=== PATIENT | female | born 1950 | race Caucasian/White ===

== ENCOUNTER 2018-09-05 08:03 | Emergency (ER) | payer OTHER, SELFPAY ==
[2018-09-05 08:03] VITALS: BP 174/84; PULSE 83; RESP 18; TEMP 36.6; O2SAT 100; BMI 32.8
--- NOTE | 2018-09-05 08:06 | ED.DIZZY ---
HPI - Dizziness General Chief Complaint: Dizziness Stated Complaint: DIZZY Time Seen by Provider: 09/05/18 08:04 Source: patient and family Mode of arrival: ambulatory Limitations: no limitations History of Present Illness HPI Narrative: 68-year-old female who states that last evening she woke up to urinate. She states she got out of bed and while walking to the bathroom she had a minor vertigo sensation. She states that when she got back in bed late on her right side the symptoms became much worse. Had no other symptoms at the time. Did not have any nausea or vomiting. She states that she had to sit up which did improve the symptoms somewhat. She states that she fell asleep sitting up. She woke up at approximately 0400 hr this morning again with an episode of vertigo. She states that a couple hours later she started burping and has been unable to stop burping. She states that her vertigo has greatly improved. Related Data Previous Rx's Medication Instructions Recorded meclizine 25 mg PO BID-TID PRN #10 tab 09/05/18 Allergies Allergy/AdvReac Type Severity Reaction Status Date / Time codeine Allergy Verified 09/05/18 08:18 diphenhydramine Allergy Verified 09/05/18 08:18 [From Benadryl] Penicillins Allergy Verified 09/05/18 08:18 propoxyphene [From Darvon] Allergy Verified 09/05/18 08:18 all antibiotics Allergy Uncoded 09/05/18 08:18 Review of Systems Constitutional Denies fever(s) and Denies headache(s) Eyes Denies blurry vision, Denies decreased night vision, Denies diplopia, Denies eye discharge, Reports other visual disturbances (She states that her eyes are somewhat blurry) and Denies eye pain ENT Ears, Nose, Mouth, and Throat: Denies change in voice, Denies dental pain, Reports vertigo, Denies headache(s), Denies nose pain, Denies disequilibrium, Denies tinnitus, Denies sinus pressure, Denies sore throat and Denies throat swelling Comments: Burping Cardiovascular Denies chest pain, Denies syncope, Denies edema, Denies leg edema and Denies dyspnea Respiratory Denies cough and Denies dyspnea Gastrointestinal Gastrointestinal: Denies abdominal pain, Denies change in bowel habits, Denies nausea and Denies vomiting Genitourinary Denies dysuria Musculoskeletal Denies myalgias, Denies arthralgias, Denies numbness and Denies tingling Integumentary/Breasts Denies rash Neurologic Reports vertigo, Denies syncope, Denies headache(s), Denies memory loss, Denies numbness, Denies restless legs, Denies convulsions, Denies seizure-like activity, Denies tingling, Denies paresthesias and Denies disequilibrium Psychiatric Denies memory loss Hematologic/Lymphatic Comments: Not on anticoagulation Allergic/Immunologic Denies throat swelling [facility] Medical History Hyperlipidemia (Acute) Hypertension (Acute) Social History Smoking Status: Never smoker Exam Initial Vital Signs Initial Vital Signs: Vital Signs Temperature 98 F 09/05/18 08:03 Pulse Rate 83 09/05/18 08:03 Respiratory Rate 18 09/05/18 08:03 Blood Pressure 174/84 H 09/05/18 08:03 Pulse Oximetry 100 09/05/18 08:03 Const General: cooperative, healthy appearing, comfortable, well developed, well groomed and No acute distress Orientation: alert, awake and oriented x3 HENMT Head: normal to inspection and normocephalic Ears: TM's normal bilaterally Nose: external nose normal Face and sinus: normal facial exam Mouth: oral mucosae normal Eyes Eyelids: eyelids normal Pupils: PERRL EOM: EOM intact bilaterally and No nystagmus Resp Effort & Inspection: normal respiratory effort Auscultation: clear to auscultation bilaterally Cardio Rate: regular rate Rhythm: regular rhythm Heart Sounds: no murmurs Pulses: radial pulses present GI Inspection: non-distended Palpation: soft, No firm and No tender Skin Lesions: no lesions Rashes: no rashes Neuro General: alert, awake and oriented x3 Cranial Nerves: CN's II-XI intact bilaterally and No nystagmus Cognition: normal cognition Speech: speech normal Gait: normal gait Motor: muscle tone normal throughout Sensory Exam: no sensory deficits noted Extrem General: normal to inspection, capillary refill normal and No edema Psych Appearance: grossly normal and well kempt Mood: anxious mood Course Orders Ordered: ED Orders 09/05/18 08:10 EKG-12 Lead Stat 09/05/18 08:35 Basic Metabolic Panel Stat Complete Blood Count AUTO DIFF Stat Discontinued Medications Diazepam (Valium) 5 mg PO NOW ONE Stop: 09/05/18 08:16 Last Admin: 09/05/18 08:47 Dose: 5 mg Sodium Chloride (Normal Saline 0.9%) 1,000 mls @ 1,000 mls/hr IV BOLUS ONE Stop: 09/05/18 09:31 Last Admin: 09/05/18 08:47 Dose: 1,000 mls/hr Vital Signs - 8 hr 09/05/18 08:03 09/05/18 09:59 Temperature 98 F Pulse Rate 83 88 Respiratory Rate 18 18 Blood Pressure 174/84 H Blood Pressure [Left Arm] 111/84 Pulse Oximetry 100 100 MDM - Dizziness Lab Data Attestation: I reviewed the patient's lab results. Result diagrams: 09/05/18 08:35 09/05/18 08:35 Lab Results 09/05/18 09/05/18 Range/Units 08:35 08:35 WBC 4.1 L (4.5-11.0) X10^3/uL RBC 5.07 (4.0-5.2) X10^6/uL Hgb 14.1 (12.0-16.0) g/dL Hct 41.8 (36-46) % MCV 82.3 (80-100) fL MCH 27.8 (26-34) PG MCHC 33.7 (30-36) % RDW 14.2 (11.6-14.8) % Plt Count 238 (150-400) X10^3/uL Neut % (Auto) 69.7 (50-75) % Lymph % (Auto) 18.1 L (25-40) % [place] % (Auto) 9.6 (3-14) % Eos % (Auto) 1.7 L (2-4) % Baso % (Auto) 0.9 (0-2) % Neut # (Auto) 2800 (2400-2601) /uL Sodium 140 (137-145) mmol/L Potassium 4.0 (3.4-5.1) mmol/L Chloride 103 (98-107) mmol/L Carbon Dioxide 27 (22-32) mmol/L BUN 22 H (7-17) mg/dL Creatinine 0.80 (0.52-1.04) mg/dL Estimated GFR > 60.0 (>60) mL/min BUN/Creatinine Ratio 27.5 H (6-22) Glucose 110 (80-110) mg/dL Calcium 9.3 (8.4-10.2) mg/dL ECG Data Attestation: I personally reviewed and interpreted this ECG as follows: Prior ECG tracings: not available for review Interpretation: Sinus rhythm Ventricular rate 87 Normal axis Normal intervals Normal QRS No ST T wave changes MDM Narrative Medical decision making narrative: Patient arrived with her symptoms greatly improved. She has a normal neurologic exam. Ambulated to the bathroom. Labs unremarkable. EKG unremarkable. It did seem to be positional stating that it was worse when she laid on her right side last evening. I have low suspicion for central vertigo. Will hold on further radiologic studies for now. Unsure as the exact etiology of the burping that she was experiencing. She was not complaining of any chest pain. Low suspicion for ACS. Patient's symptoms did completely resolve after receiving Valium here in the ER. Will send home with prescription for meclizine. Patient was given return precautions. She expressed understanding and agreement with plan. Patient has allergy to Benadryl is that she vomits. It is not an anaphylactic reaction. I did inform her that the meclizine may produce the same reaction. She expressed understanding. Discharge Plan Departure Patient Disposition: Home Clinical Impression: Vertigo Instructions: DI for Vertigo Activity Restrictions/Additional Instructions: The prescription that you were given today is as needed if the symptoms return. I do recommend you follow-up with your primary doctor when you return home. Make sure you are staying hydrated. Return to the emergency department for any new or worsening symptoms Prescriptions: New meclizine 25 mg tablet 25 mg PO BID-TID PRN (Reason: motion sickness) Qty: 10 RF: 0
[2018-09-05] MEDS: diazePAM 5 MG TABLET PO (08:47)
[2018-09-05] MEDS: SODIUM CHLORIDE 0.9% 1,000 ML 1000 ML IV (08:47)
[2018-09-05 08:48] LABS: Add Manual Diff / Slide Review NO; Basophils Percent Auto 0.9 % (0-2); Eosinophils Percent Auto 1.7 % (2-4); Hematocrit 41.8 % (36-46); Hemoglobin 14.1 g/dL (12.0-16.0); Lymphocytes Percent Auto 18.1 % (25-40); Mean Corpuscular HGB Conc 33.7 % (30-36); Mean Corpuscular Hemoglobin 27.8 PG (26-34); Mean Corpuscular Volume 82.3 fL (80-100); Monocytes Percent Auto 9.6 % (3-14); Neutrophils Absolute Auto 2800 /uL (1500-7000); Neutrophils Percent Auto 69.7 % (50-75); Platelet Count 238 X10^3/uL (150-400); Red Blood Cell Count 5.07 X10^6/uL (4.0-5.2); Red Cell Distribution Width 14.2 % (11.6-14.8); White Blood Cell Count 4.1 X10^3/uL (4.5-11.0)
[2018-09-05 08:57] LABS: BUN Creatinine Ratio 27.5 (6-22); Blood Urea Nitrogen 22 mg/dL (7-17); Calcium 9.3 mg/dL (8.4-10.2); Carbon Dioxide 27 mmol/L (22-32); Chloride 103 mmol/L (98-107); Estimated Glomerular Filt Rate > 60.0 mL/min (>60); Glucose 110 mg/dL (80-110); HEMOLYSIS < 15 (0-50); Sodium 140 mmol/L (137-145)
[2018-09-05 09:59] VITALS: BP 111/84; PULSE 88; RESP 18; O2SAT 100
[2018-09-05 10:52] VITALS: BP 121/84; PULSE 81; RESP 18; O2SAT 100
--- NOTE | 2018-10-05 16:57 | PC.NURSE ---
Per Shayla RN, pt received 1000ml NS IV completed at 1024 on 09/05/2018
== END 2018-09-05 10:53 | disposition home or self-care (01) ==
PROVIDERS: Emergency Provider Emergency Medicine
DX: R42 Dizziness and giddiness (principal)
CPT/HCPCS: 36415; 80048; 85025; 93005; 96360; 96361; 99282; 99284

== ENCOUNTER → 2018-11-03 14:08 | Outpatient (CLI) | payer OTHER, SELFPAY ==
[2018-11-03 14:59] LABS: Appearance Urine UA SL CLOUDY; Bilirubin Urine UA NEGATIVE (NEGATIVE); Color Urine UA YELLOW; Glucose Urine UA NEGATIVE (Negative); Ketones Urine UA NEGATIVE (NEGATIVE); Leukocyte Esterase Urine UA NEGATIVE (NEGATIVE); Nitrite Urine UA NEGATIVE (Negative); Occult Blood Urine UA 1+ (Negative); Protein Urine UA NEGATIVE (Negative); Specific Gravity Urine UA >=1.030 (1.000-1.035); Urobilinogen Urine UA 0.2 E.U./dL (0.2)
[2018-11-03 15:06] LABS: Add Manual Diff / Slide Review NO; Basophils Absolute Auto 0 /uL (0-100); Basophils Percent Auto 0.6 % (0-2); Eosinophils Absolute Auto 100 /uL (0-450); Eosinophils Percent Auto 2.9 % (2-4); Hematocrit 42.5 % (36-46); Lymphocytes Absolute Auto 1100 /uL (1100-4500); Lymphocytes Percent Auto 21.1 % (25-40); Mean Corpuscular Hemoglobin 27.2 PG (26-34); Mean Corpuscular Volume 82.3 fL (80-100); Monocytes Absolute Auto 500 /uL (0-900); Monocytes Percent Auto 8.9 % (3-14); Neutrophils Absolute Auto 3400 /uL (1500-7000); Neutrophils Percent Auto 66.5 % (50-75); Platelet Count 270 X10^3/uL (150-400); Red Blood Cell Count 5.16 X10^6/uL (4.0-5.2); Red Cell Distribution Width 14.7 % (11.6-14.8); White Blood Cell Count 5.1 X10^3/uL (4.5-11.0)
[2018-11-03 15:09] LABS: Amorphous Sediment Urine 1+; Bacteria Urine Few (2-10); Mucus Urine 1+ (Negative); RBC Urine 0-1/HPF (0-5/HPF); Squamous Epithelial Cell Urine 1-5 /HPF; WBC Urine 5-10/HPF (0-5/HPF)
[2018-11-03 15:12] LABS: Hemoglobin A1C% w Est Avg Glu 5.7 % (4.0-6.0)
[2018-11-03 15:27] LABS: Erythrocyte Sedimentation Rate 9 MM/HR (0-20)
[2018-11-03 15:38] LABS: Blood Urea Nitrogen 27 mg/dL (7-17); C-Reactive Protein Quant 0.8 mg/dL (<1.0); Calcium 9.5 mg/dL (8.4-10.2); Carbon Dioxide 26 mmol/L (22-32); Chloride 104 mmol/L (98-107); Estimated Glomerular Filt Rate > 60.0 mL/min (>60); Glucose 117 mg/dL (80-110); HEMOLYSIS 15 (0-50); Potassium 3.7 mmol/L (3.4-5.1); Sodium 141 mmol/L (137-145); Uric Acid 5.9 mg/dL (2.5-6.2)
[2018-11-03 15:40] LABS: Rheumatoid Factor < 8.6 IU/mL (<12.0)
[2018-11-05 21:26] LABS: ANA Pattern Homogeneous; ANA Screen, IFA Positive (Negative)
== END ==
PROVIDERS: Visit Provider Physician Assistant
DX: Z01.818 Encounter for other preprocedural examination (principal)
CPT/HCPCS: 36415; 80048; 81001; 83036; 84550; 85025; 85651; 86038; 86140; 86430; 87086

== ENCOUNTER 2018-11-11 06:00 | Inpatient (IN) | payer OTHER, SELFPAY ==
[2018-11-04 13:02] VITALS: BMI 34.0
[2018-11-11] VITALS (14 sets, daily range): BP systolic 103–149; BP diastolic 51–86; PULSE 72–90; RESP 12–18; TEMP 35.9–37; O2SAT 91–100; BMI 31.9
--- NOTE | 2018-11-11 | DI.RAD.S_ITS ---
PROCEDURE: XR PELVIS 1-2V INDICATIONS: INTRAOPERATIVE CROSSTABLE PELVIS TECHNIQUE: Intra-operative view of the pelvis and hip acquired. COMPARISON: None. FINDINGS: Bones: There is left hip arthroplasty. Intraoperative devices prior to placement of arthroplasty prostheses are in expected positions. No fractures or suspicious bony lesions. Soft tissues: Overlying surgical retractors are present, along with other intraoperative changes. IMPRESSION: Intraoperative left hip device in anatomic alignment. Dictated by: Zena Banegas M.D. on 11/11/2018 at 10:12 Approved by: Zena Banegas M.D. on 11/11/2018 at 10:13
--- NOTE | 2018-11-11 06:40 | DI.RAD.S_ITS ---
PROCEDURE: XR HIP W PEL IF DONE LT 2V INDICATIONS: postop left total hip TECHNIQUE: AP pelvis and lateral view of the left hip acquired. [facility] [place] [place] [place], XR PELVIS WITH LATERAL HIP LEFT, 06/21/2018, 13:55. FINDINGS: Bones: Patient is status post left hip arthroplasty, with hardware components in expected positions. The hip joint appears congruent. The visualized bony structures appear intact. There is a right-sided femoral medullary jin with upper tip terminating at the intertrochanteric line Soft tissues: Overlying postoperative changes are noted. No suspicious soft tissue densities. IMPRESSION: Normal alignment after left total hip arthroplasty with a surgical drain overlying a rib end. Right-sided medullary jin partially visualized, stable over time. Dictated by: Kwabena David M.D. on 11/11/2018 at 11:35 Approved by: Kwabena David M.D. on 11/11/2018 at 11:36
[2018-11-11] MEDS: LACTATED RINGERS 1,000 ML 42 ML IV (06:50)
[2018-11-11] MEDS: VANCOMYCIN 1,000 MG/200 ML FROZ.PIGGY 200 MG IV ×2 (06:50→19:20)
[2018-11-11] MEDS: MELOXICAM 7.5 MG TABLET 15 MG PO (07:17)
[2018-11-11] MEDS: PREGABALIN 75 MG CAPSULE PO (07:22)
--- NOTE | 2018-11-11 07:55 | PM.PREOP ---
Pre-operative Note Interval Note History & Physical reviewed/Exam performed by Physician: Yes Changes to H&P: No
--- NOTE | 2018-11-11 07:57 | P.OP_ITS ---
Operative Date/Time/Diagnoses Date of procedure: 11/11/18 Time of procedure: 07:55 Pre-op diagnosis: left hip Osteoarthritis Post-op diagnosis: same Procedure & Clinicians Procedure: left total hip arthroplasty Same procedure as scheduled: Yes Indications: The patient has had progressively worsening left hip pain with radiographic changes consistent with arthritis. Non-operative management has failed and the patient has requested total hip replacement. The risks, benefits and alternatives to surgery were discussed with the patient prior to proceeding. Risks discussed included, but were not limited to, failure to relieve pain, leg length discrepancy, dislocation, stiffness, infection, nerve damage, deep venous thrombosis, pulmonary embolism, stroke, coma, heart attack, permanent paralysis and , as well as the potential need for eventual revision of the prosthetic. Surgeon: Marsha Solis Sheet Metal Worker: Heather Merida Anesthesia Type: General and Spinal Operative Notes Findings: Severe left hip arthritis, adequate stability Closure Type: primary Specimen(s): none sent Prosthetic devices, grafts, tissues, transplants, or devices: solis and neph[employer]com Express standard offset anthology size 9, R3 54, -3 by 36 oxinium Applied: drain(s) Estimated Blood Loss (mL): 250 Blood products transfused: none Procedure in detail: The patient was seen in the pre-operative area, where the p atient identified the left hip as the operative site and this was marked with my initials. The patient received pre-operative antibiotics and was taken to the operating room and placed on the operative table in the right lateral decubitus position after satisfactory anesthesia. A fullerette out was performed. The left leg was prepared from the ankle to the iliac crest with ChloroPrep in the usual fashion and draped through sterile drapes. The hip was approached through an approximately 20 cm incision centered over the greater trochanter and curving gently posteriorly as it went proximally. This was carried sharply to the fascia liseth, which was divided and retracted with a self retaining retractor. The trochanteric bursa was excised with care being taken to avoid the sciatic nerve, which was identified and protected throughout the case. The short external rotators were incised and the capsulomuscular flap was raised and tagged for later repair. The hip was dislocated, and a femoral ne ck osteotomy performed approximately 15 mm above the lesser trochanter. Retractors were placed around the femur. The canal was opened with a box cutting osteotome, followed by a T handled reamer and a lateralizing reamer. The chili pepper broach was then used, followed by sequential broaching until there was good stability of the broach in the femur. Retractors were placed to expose the acetabulum. The labrum and central soft tissues were removed. Reaming was performed initially going up in 2 mm increments, then 1 mm increments until good bite was obtained with an odd sized reamer. The cup 1 mm larger than the last reamer was then inserted using the appropriate anteversion guides. A trial neutral liner was placed. The broach was placed in the canal. A trial head and neck were then placed and the hip relocated and checked for leg length and stability. An intraoperative film confirmed the component position and no evidence of fracture. The patient was stable in the position of sleep, of squatting, and could be put through a range of motion with 45 degrees internal rotation without dislocation. At 90 degrees flexion, internal rotation to 80 was possible before dislocation. This w as felt to be satisfactory and the appropriate components were opened, and the trials were removed. The acetabular liner was impacted into position. The final stem was then impacted into the prepared femoral canal. A brief Betadine soak was performed while trialing with head options. The hip was meticulously irrigated with normal saline. Finally the femoral head was impacted onto the stem. The acetabulum was cleared of all material and the hip relocated one final time. The capsulomuscular flap was then repaired to the greater trochanter though an awl hole using the tag sutures. The short external rotators were repaired with a nonabsorbable suture. A deep drain was placed and brought out anteriorly. The fascia liseth was closed with vicryl. The subcutaneous layer was closed with barbed sutures and SteriStrips. An Aquacel Ag dressing was applied and the patient was taken to recovery having tolerated the procedure well. Complications: none Condition: stable Disposition: Acute Care Plan for aftercare: The patient will be maintained on a standard total hip replacement protocol with weight bearing as tolerated and posterior hip precautions. The patient will receive Aspirin and sequential compression devices for DVT prophylaxis. The patient will be discharged home when safe for the home environment.
[2018-11-11] MEDS: GENTAMICIN 120 MG in SODIUM CHLORIDE 0.9% 100 ML 103 ML IV (08:20)
--- NOTE | 2018-11-11 08:39 | SUR.OPER ---
Lateral on padded OR bed. Gel axillary roll. Arms secured on padded armboard with pillow supporting top arm. Padded hip positioner braces x4 - anterior and posterior chest and pelvis. Additional gel pad used anterior pelvis. Gel pad under bottom leg from knee to foot and secured with tape over sheet.
[2018-11-11] MEDS: BUPIVACAINE 0.25% W/ EPI VIAL 50 ML INJ (08:47)
[2018-11-11] MEDS: BUPIVACAINE LIPOSOME 266 MG/20 ML VIAL INJ (08:48)
[2018-11-11] MEDS: SODIUM CHLORIDE IRRIG SOLUTION 250 ML, EPINEPHrine 1 MG IRR (09:15)
[2018-11-11] MEDS: POVIDONE-IODINE 15 ML, SODIUM CHLORIDE 0.9% 250 ML TOP (09:44)
[2018-11-11] MEDS: ONDANSETRON 4 MG/2 ML INJ IV (11:59)
[2018-11-11] MEDS: LACTATED RINGERS 1,000 ML 125 ML IV ×2 (12:00→19:39)
--- NOTE | 2018-11-11 12:02 | PC.NURSE ---
Pt arrived on floor from PACU at 1145. Pt c/of new onset nausea and dizziness. Given IV zofran and IVF started with no improvement. O2 sats = 96% on RA. Dressing to left hip CDI with hemovac drain present. Pt reports feeling unwell at this time. Vitals stable. Continue to monitor closely.
--- NOTE | 2018-11-11 15:02 | PC.NURSE ---
Pt continued to feel nauseated and vomited several more times before falling asleep. Making loud snoring noises. O2 sats = 98% on 2L at this time. Dtr left but wishes to be called in if needed.
[2018-11-11] MEDS: ONDANSETRON 4 MG ODT PO (16:17)
--- NOTE | 2018-11-11 16:41 | PT.IPTN ---
Current Diagnoses Unilateral primary osteoarthritis, left hip (11/11/18) Surgery Performed Operation Date: 11/11/18 07:45 Actual Procedures p Total Hip Arthroplasty(Left) - Marsha Elkins MD Physical Therapy Treatment Note M3 PT-IP Subjective Start: 11/11/18 16:39 Freq: NEEDED Status: Active Protocol: Document 11/11/18 16:40 AB (Rec: 11/11/18 16:41 AB [id number]) Subjective Physical Therapy Visit Type Notes checked on pt 2x but pt stated that she is not ready to move . c/o nausea and dizziness. nurse stated that pt with (+) emesis just a few minutes before PT checked on pt. will f/u tommorow. Obtained home set up and PLOF from pt's daughter.
--- NOTE | 2018-11-11 20:07 | PC.NURSE ---
Pt reports h/o vertigo. States unable to take meclizine d/t allergy. States meclizine and benadryl cause profound nausea and vomiting. Pt reports dizziness with eyes open and with movement. States increases with movement. Pt has spontaneous emesis with any and all movement. Dr. Lou was contacted by telephone and this was discussed. Orders obtained and entered for scopolamine patch. Pt in agreement with this plan.
[2018-11-11] MEDS: SCOPOLAMINE 1 PATCH TOP (20:21)
--- NOTE | 2018-11-11 23:33 | PC.NURSE ---
Pt continued to be nauseous from PACU. Zofran was ineffective. Dr. Lou notified and an order for scopalamine was obtained, pt reports improvement in dizziness and nausea. Taking clear liquids. Denies pain. Incontinent of urine x 1.
--- NOTE | 2018-11-12 00:01 | PC.NURSE ---
Addendum entered by Rocio Arce R.N. 11/12/18 05:17: Attempted to urinate on bedpan but was unsuccessful. Bladder scan showing 427cc in bladder. Assisted out of bed with walker and 2 assists to BSC and able to void 225cc. Dressing remains CDI. Leg is swollen and red but cool to touch. States pain is 1/10 and declines pain medication. O2 sat 99% on 1L oxygen so O2 removed. Original Note: Patient is alert and oriented. Breath sounds CTA with oxygen at 1L/min per NC with st of 97%; per evening RN has suspected undiagnosed sleep apnea. HRR. Earlier nausea improved but currently belching and states she still has some slight nausea/dizziness; had Scopolamine patch applied earlier. Is able to move self in bed; instructed to ask for help if wanting any assistance to turn on side. Dressing to left hip is CDI; hemovac is intact and compressed. States she is having 2/10 sciatica but declines offer of pain medication; ice applied. CMS intact except for chronic numbness in right foot. Wearing bilateral SCD's. Fall risk score is moderate; bed alarm is activated.
[2018-11-12] MEDS: LACTATED RINGERS 1,000 ML 125 ML IV (04:42)
[2018-11-12 04:47] VITALS: BP 126/66; PULSE 77; RESP 16; TEMP 36.3; O2SAT 99
[2018-11-12 05:46] LABS: Hematocrit 39.1 % (36-46); Hemoglobin 12.8 g/dL (12.0-16.0)
[2018-11-12] MEDS: hydrOXYzine pamoate 25 MG CAPSULE PO (08:15)
[2018-11-12 09:00] VITALS: BP 133/89; PULSE 79; RESP 20; O2SAT 96
[2018-11-12] MEDS: TRAMADOL 50 MG TABLET PO ×2 (09:18→12:45)
[2018-11-12] MEDS: ASPIRIN EC 81 MG TABLET PO (09:20)
[2018-11-12] MEDS: LOSARTAN 25 MG TABLET PO (09:21)
[2018-11-12] MEDS: NAPROXEN 250 MG TABLET 500 MG PO (09:21)
[2018-11-12] MEDS: DOCUSATE 100 MG CAPSULE PO (09:21)
[2018-11-12 09:24] VITALS: PULSE 86; O2SAT 99
--- NOTE | 2018-11-12 09:40 | PT.IIE ---
Current Diagnoses Unilateral primary osteoarthritis, left hip (11/11/18) Surgery Performed Operation Date: 11/11/18 07:45 Actual Procedures p Total Hip Arthroplasty(Left) - Marsha Elkins MD Surgical History (Last Updated 11/04/18 @ 13:18 by Salma Luna RN) History of bunionectomy of left great toe (Acute ~1998) Medical History (Last Updated 11/04/18 @ 13:18 by Salma Luna RN) BCC (basal cell carcinoma) (Acute) Back pain (Acute) Hyperlipidemia (Acute) Hypertension (Acute) Migraines (Acute) Osteoarthritis (Acute) Pneumonia (Acute) Right femoral fracture (Acute ~2005) Right tibial fracture (Acute ~2004) Sciatica (Acute) Spinal stenosis (Acute) Physical Therapy Inpatient Evaluation/Re-Eval M1 PT/OT-IP Prior Functional Status Start: 11/11/18 16:39 Freq: NEEDED Status: Active Protocol: Document 11/12/18 09:40 AB (Rec: 11/12/18 13:36 AB [email or web address]) Medical Review Prior Functional Status Medical History Reviewed Yes Communication able to make needs known Mobility and Gait pt stated that she is independent with all mobilities and ambulation without AD but uses 2 hiking poles for ambulation on uneven surfaces Social History Household Members none Living Arrangements House Number of Floors (Floors) Two Floors Number of Stairs To Enter/Railing? 1 step entry Home Environment Standard Height Toilet Tub/Shower Doors Home Equipment Four Wheel Walker Straight Cane Bedside Commode Long Handled [place] Nursing Coordinator Sock Aid Additional Social History Comment pt lives alone but plans to stay at her daughter's house upon d/c. daughter stated that she works from home and will be able to assist pt. above home set up infor is regarding daughter's house. pt plans to just do sponge bathing when d/c until able to climb stairs. daughter stated that she will not attempt to do stairs with pt because they have ~ 18 steps to get to 2nd level of the house where the bathroom is. M2 PT-IP Current Condition Start: 11/11/18 16:39 Freq: NEEDED Status: Active Protocol: Document 11/12/18 09:40 AB (Rec: 11/12/18 13:36 AB [email or web address]) Physical Therapy Current Condition Current Condition Evaluation Date 11/12/18 Treatment Diagnosis s/p L GONZALEZ posterior approach; difficulty in walking Onset Date 11/11/18 Precautions Posterior Hip Precautions No Hip Flexion > 90 degrees No Hip Internal Rotation No Hip Adduction Other Precautions Falls Weight Bearing Status Weight Bearing Status Weight Bear as Tolerated M3 PT-IP Subjective Start: 11/11/18 16:39 Freq: NEEDED Status: Active Protocol: Document 11/12/18 09:40 AB (Rec: 11/12/18 13:36 AB [email or web address]) Subjective Physical Therapy Visit Type Type Initial Evaluation Visit Start Time 09:10 Visit Stop Time 10:33 Total Visit Minutes 53 Number of INVESTOR RELATIONS SPECIALIST Visits 0 Physical Therapy Visit Comments Patient Comments pt agreeable to do PT; stated that she is feeling better compared to yesterday Therapy Pain Assessment Pain Present Pain Present Pain Reported Location Left Hip Intensity 3 Scale Used Numeric (1 - 10) Pain Management Techniques Apply Cold Re-positioning Timing of Activity with Medications M4 PT-IP Mobility and Gait Start: 11/11/18 16:39 Freq: NEEDED Status: Active Protocol: Document 11/12/18 09:40 AB (Rec: 11/12/18 13:36 AB [email or web address]) PT-Bed Mobility Assessment Supine to Sit Supine to Sit Moderate Assistance 1 Person Assistance PT-Transfer Assessment Sit to and From Stand Sit to and from Stand Minimal Assistance 1 Person Assistance Equipment Transfer Assistive Device Gait Belt Front Wheeled Walker Transfers Transfer Destination Chair Transfer Technique pt ambulated to the toilet using FWW Transfer Ability Level of Assist Minimal Assistance 1 Person Assistance Use of Upper Extremities Gait Assessment Gait Gait Assistance Required: Minimum Assistance Distance (Feet) 35 Able to Maintain Weight Bearing Status Yes During Gait Assistive Devices Assistive Device Gait Belt Front Wheeled Walker Orthotic/Prosthetic Devices or Brace: Yes Gait Deviations General Gait Pattern Antalgic Decreased Stride Length Decreased Feet Clearance Step-to Gait Factors Limiting Gait Function Factors Limiting Gait Function Decreased Activity Tolerance Decreased Strength Difficulty Following Directions Limited Range of Motion Pain Poor Balance Poor Safety Awareness Comments Gait Comments pt requires cues for hip precautions and for L quad activation PT-Balance Assessment Sitting Balance and Reactions Static Sitting Balance Ability Good Dynamic Sitting Balance Ability Good Standing Balance and Reactions Static Standing Balance Ability Fair Dynamic Standing Balance Ability Fair Device Used FWW M5 PT-IP Objective Assessments Start: 11/11/18 16:39 Freq: NEEDED Status: Active Protocol: Document 11/12/18 09:40 AB (Rec: 11/12/18 13:36 AB [email or web address]) Orientation Orientation/Cognition Level of Alertness Alert Orientation Name Age Place Situation Language Function Ability No Deficits Noted Safety Awareness Understands Safety Issues Memory Description Short Term Impaired Gross Range of Motion Lower Extremity ROM Assessment Left Impaired Impairments L hip tightness Strength Lower Extremity Strength Assessment Left Impaired Knee 3+/5 Coordination Assessment Gross Coordination Gross Coordination WNL Sensation Assessment Sensation Gross Sensation WNL Muscle Tone Muscle Tone WNL Yes M6 PT-IP Treatment Start: 11/11/18 16:39 Freq: NEEDED Status: Active Protocol: Document 11/12/18 09:40 AB (Rec: 11/12/18 13:36 AB [email or web address]) Physical Therapy Treatment Exercises Exercises Quad Sets Heel Slides Education Education Provided Precautions Weight Bearing Status Post-Op Packet Safety Other Treatments Other Treatment Performed daughter present during PT session and educated on pt's hip precautions and assistance needed. M7 PT-IP Assessment and Plan Start: 11/11/18 16:39 Freq: NEEDED Status: Active Protocol: Document 11/12/18 09:40 AB (Rec: 11/12/18 13:36 AB [email or web address]) PT Summary Assessment and Plan Potential Rehabilitation Potential Good Status of Condition at Evaluation Evolving Summary Impairments Pain ROM Strength Balance Coordination Sensation Tone Cognition Bed Mobility Transfers Gait Activity Tolerance Assessment Summary pt requiring one person assist with mobility but will likely progress during hospital stay . daughter will assist pt at home and caregiver training will be conducted when appropriate. will also conduct stair climbing prior to d/c. Goals Bed Mobility Goal Standby Assistance Transfer Goal Standby Assistance Front Wheeled Walker Gait Goal Standby Assistance Front Wheel Walker Gait Distance 150 Other Goals up/down 1 step using FWW CGA Days to Meet Goals 3 Frequency of Treatment Frequency Of Treatment Twice a Day Treatment Plan Physical Therapy Treatment Plan Bed Mobility Training Transfer Training Gait Training Therapeutic Exercise Balance Retraining Post Op Education Discharge Planning Hot or Cold Pack Neuromuscular Re-ed Coordination Retraining Manual Therapy Other Recommendations and Next Treatment ambulation, caregiver training Focus , stair climbing Recommendations To Nursing Amount of Assist Needed 1 Person Assist Discharge Recommendations PT Discharge Recommendations Home with Assistance Outpatient PT
--- NOTE | 2018-11-12 11:10 | PC.NURSE ---
Jeanie initially was very red and blotchy and felt itchy all over. New Rx for Vistaril obtained. Given 25 mg of Vistaril and lotion applied to skin with some relief. For pain she declined Tylenol as she is intolerant. Given Tramadol 50 mg instead, and she currently states pain 10/17. Ice shellie to l hip. Aquacel drsg. clean/dry/intact. Hemovac drain present. Will d/c drain per order. Thus far today Jeanie has no nausea and dizziness.
--- NOTE | 2018-11-12 11:48 | PM.DS.1 ---
History of Present Illness Date Patient Seen: 11/12/18 Time Patient Seen: 11:48 Chief complaint: Left Total Hip Arthroplasty 41802 Narrative: Patient's pain is well controlled. Denies fever chills. She worked with Physical therapy this morning was able to walk in the room without difficulty. Urinating well. Daughter is home to assist her. Discharge Providers Date of admission: 11/11/18 06:00 Discharge Date: 11/12/18 Consults: 11/11/18 06:40 Consult to Anesthesiology Routine Comment: Consulting Provider: Anesthesiologist Reason for consultation: Regional block for post operative pain control 11/11/18 11:47 Consult to Anesthesiology Routine Comment: Consulting Provider: Anesthesiologist Reason for consultation: Regional block for post operative pain control Consult to Discharge Planning Routine Comment: Consult to Physical Therapy Evaluate & Treat Comment: moncho hollis today Physician Instructions: post op GONZALEZ protocol Consult to Respiratory Therapy Evaluate & Treat Comment: Physician Instructions: Evaluate and treat Discharge provider: Mian Polo PA-C Summary Discharge Diagnosis: Status post left total hip arthroplasty Hospital Course: The patient has had progressively worsening left hip pain with radiographic changes consistent with arthritis. Non-operative management has failed and the patient has requested total hip replacement. The risks, benefits and alternatives to surgery were discussed with the patient prior to proceeding. Risks discussed included, but were not limited to, failure to relieve pain, leg length discrepancy, dislocation, stiffness, infection, nerve damage, deep venous thrombosis, pulmonary embolism, stroke, coma, heart attack, permanent paralysis and , as well as the potential need for eventual revision of the prosthetic. Surgeon: Marsha Solis Solvent Plant Operator: Heather Merida Anesthesia Type: General and Spinal Operative Notes Findings: Severe left hip arthritis, adequate stability Closure Type: primary Specimen(s): none sent Prosthetic devices, grafts, tissues, transplants, or devices: solis and nephew standard offset anthology size 9, R3 54, -3 by 36 oxinium Applied: drain(s) Estimated Blood Loss (mL): 250 Blood products transfused: none Patient taken to the operating room underwent left total hip arthroplasty. Patient back in her room recovering well and is in stable condition. Patient physical therapy this morning. Her daughter's home to assist her. Patient feels ready to be discharged home today. Status at Discharge Cognitive/behavioral status at discharge: at baseline, oriented Functional status at discharge: uses cane/walker Overall status at discharge: patient is progressing back to baseline Time Spent with Patient Less than 30 minutes Exam Vital Signs (past 8 hours): - 11/12/18 04:47 11/12/18 09:00 11/12/18 09:24 Temperature 97.3 F L Pulse Rate 77 79 86 Respiratory Rate 16 20 Blood Pressure 126/66 133/89 Pulse Oximetry 99 96 99 Oxygen Delivery Method Room Air Oxygen Flow Rate 1 Narrative Exam Narrative: Pleasant 68-year-old female resting comfortably in bed this morning. She is currently sitting comfortably in the bedside chair. Left hip dressing is clean, dry and intact. Left leg is warm and dry. Neurovascular status is intact to the distal left lower extremity. Objective Labs Result Diagrams: 11/12/18 05:28 Labs: Laboratory Results - last 24 hr 11/12/18 05:28 Hgb 12.8 Hct 39.1 Discharge Plan Discharge Plan Patient Disposition: Home Discharge Med Rec/Prescriptions Prescriptions: Continued losartan 25 mg Tablet 25 mg PO DAILY RF: 0 naproxen sodium [Aleve] 220 mg Capsule 220 mg PO BEDTIME RF: 0 Follow up/Referrals: Marsha Solis MD [Physician] - (1 week) Provider Discharge Instructions Diet: Diet as Tolerated Activity: WBAT, posterior hip precautions Cold/Heat Therapy: ice as needed Other treatments: Aspirin 81 mg b.i.d., Tylenol 1000 mg q.8 hours, Dilaudid as needed pain, Vistaril as needed nausea and/or muscle spasm Skin/Wound/Dressing Care Report to your healthcare provider any signs of infection, such as:: chills, fever, increased pain, unusual drainage and unusual redness Dressing: Keep clean and dry Discharge Data Attending Provider: Marsha Solis Admit Date/Time: 11/11/18 06:00 Quality VTE Deep Vein Thrombosis/Pulmonary Embolism Present on Admission: No
--- NOTE | 2018-11-12 11:52 | P.DS_ITS ---
History of Present Illness Date Patient Seen: 11/12/18 Time Patient Seen: 11:48 Chief complaint: Left Total Hip Arthroplasty 68144 Narrative: Patient's pain is well controlled. Denies fever chills. She worked with Physical therapy this morning was able to walk in the room without difficul ty. Urinating well. Daughter is home to assist her. Discharge Providers Date of admission: 11/11/18 06:00 Discharge Date: 11/12/18 Consults: 11/11/18 06:40 Consult to Anesthesiology Routine Comment: Consulting Provider: Anesthesiologist Reason for consultation: Regional block for post operative pain control 11/11/18 11:47 Consult to Anesthesiology Routine Comment: Consulting Provider: Anesthesiologist Reason for consultation: Regional block for post operative pain control Consult to Discharge Planning Routine Comment: Consult to Physical Therapy Evaluate & Treat Comment: moncho hollis today Physician Instructions: post op GONZALEZ protocol Consult to Respiratory Therapy Evaluate & Treat Comment: Physician Instructions: Evaluate and treat Discharge provider: Mian Polo PA-C Summary Discharge Diagnosis: Status post left total hip arthroplasty Hospital Course: The patient has had progressively worsening left hip pain with radiographic changes consistent with arthritis. Non-operative management has failed and the patient has requested total hip replacement. The risks, benefits and alternatives to surgery were discussed with the patient prior to proceeding. Risks discussed included, but were not limited to, failure to relieve pain, leg length discrepancy, dislocation, stiffness, infection, nerve damage, deep venous thrombosis, pulmonary embolism, stroke, coma, heart attack, permanent paralysis and , as well as the potential need for eventual revision of the prosthetic. Surgeon: Marsha Solis Sweet Dough Mixer: Heather Merida Anesthesia Type: General and Spinal Operative Notes Findings: Severe left hip arthritis, adequate stability Closure Type: primary Specimen(s): none sent Prosthetic devices, grafts, tissues, transplants, or devices: solis and nephew standard offset anthology size 9, R3 54, -3 by 36 oxinium Applied: drain(s) Estimated Blood Loss (mL): 250 Blood products transfused: none Patient taken to the operating room underwent left total hip arthroplasty. Patient back in her room recovering well and is in stable condition. Patient physical therapy this morning. Her daughter's home to assist her. Patient feels ready to be discharged home today. Status at Discharge Cognitive/behavioral status at discharge: at baseline, oriented Functional status at discharge: uses cane/walker Overall status at discharge: patient is progressing back to baseline Time Spent with Patient Less than 30 minutes Exam Vital Signs (past 8 hours): - 11/12/18 04:47 11/12/18 09:00 11/12/18 09:24 Temperature 97.3 F L Pulse Rate 77 79 86 Respiratory Rate 16 20 Blood Pressure 126/66 133/89 Pulse Oximetry 99 96 99 Oxygen Delivery Method Room Air Oxygen Flow Rate 1 Narrative Exam Narrative: Pleasant 68-year-old female resting comfortably in bed this morning. She is currently sitting comfortably in the bedside chair. Left hip dressing is clean, dry and intact. Left leg is warm and dry. Neurovascular s tatus is intact to the distal left lower extremity. Objective Labs Result Diagrams: 11/12/18 05:28 Labs: Laboratory Results - last 24 hr 11/12/18 05:28 Hgb 12.8 Hct 39.1 Discharge Plan Discharge Plan Patient Disposition: Home Discharge Med Rec/Prescriptions Prescriptions: Continued losartan 25 mg Tablet 25 mg PO DAILY RF: 0 naproxen sodium [Aleve] 220 mg Capsule 220 mg PO BEDTIME RF: 0 Follow up/Referrals: Marsha Solis MD [Physician] - (1 week) Provider Discharge Instructions Diet: Diet as Tolerated Activity: WBAT, posterior hip precautions Cold/Heat Therapy: ice as needed Other treatments: Aspirin 81 mg b.i.d., Tylenol 1000 mg q.8 hours, Dilaudid as needed pain, Vistaril as needed nausea and/or muscle spasm Skin/Wound/Dressing Care Report to your healthcare provider any signs of infection, such as:: chills, fever, increased pain, unusual drainage and unusual redness Dressing: Keep clean and dry Discharge Data Attending Provider: Marsha Solis Admit Date/Time: 11/11/18 06:00 Quality VTE Deep Vein Thrombosis/Pulmonary Embolism Present on Admission: No
--- NOTE | 2018-11-12 15:24 | PT.IPTN ---
Current Diagnoses Unilateral primary osteoarthritis, left hip (11/11/18) Surgery Performed Operation Date: 11/11/18 07:45 Actual Procedures p Total Hip Arthroplasty(Left) - Marsha Elkins MD Physical Therapy Treatment Note M2 PT-IP Current Condition Start: 11/11/18 16:39 Freq: NEEDED Status: Active Protocol: Document 11/12/18 09:40 AB (Rec: 11/12/18 13:36 AB [email or web address]) Physical Therapy Current Condition Current Condition Evaluation Date 11/12/18 Treatment Diagnosis s/p L GONZALEZ posterior approach; difficulty in walking Onset Date 11/11/18 Precautions Posterior Hip Precautions No Hip Flexion > 90 degrees No Hip Internal Rotation No Hip Adduction Other Precautions Falls Weight Bearing Status Weight Bearing Status Weight Bear as Tolerated M3 PT-IP Subjective Start: 11/11/18 16:39 Freq: NEEDED Status: Active Protocol: Document 11/12/18 15:24 AB (Rec: 11/12/18 16:45 AB [id number]) Subjective Physical Therapy Visit Type Type Treatment Note Visit Start Time 15:24 Visit Stop Time 16:19 Total Visit Minutes 55 Number of METER ATTENDANT Visits 0 Physical Therapy Visit Comments Patient Comments pt agreeable to do PT M4 PT-IP Mobility and Gait Start: 11/11/18 16:39 Freq: NEEDED Status: Active Protocol: Document 11/12/18 15:24 AB (Rec: 11/12/18 16:45 AB [id number]) PT-Bed Mobility Assessment Supine to Sit Supine to Sit Standby Assistance Sit to Supine Sit to Supine Standby Assistance Scooting Scooting to Edge of Bed Standby Assistance PT-Transfer Assessment Sit to and From Stand Sit to and from Stand Contact Guard Assistance Equipment Transfer Assistive Device Gait Belt Front Wheeled Walker Orthotic/Prosthetic Devices or Brace: No Transfers Transfer Destination Toilet Transfer Technique pt ambulated to the toilet using FWW Transfer Ability Level of Assist Contact Guard Assistance Comments Mobility Comments caregiver training conducted with pt and pt's daughter. educated daughter on how to use safety belt and how to assist pt. daughter was able to safely assist pt with bed mobility, transfers and ambulation using FWW Gait Assessment Gait Gait Assistance Required: Contact Guard Assist Distance (Feet) 100 Able to Maintain Weight Bearing Status Yes During Gait Assistive Devices Assistive Device Gait Belt Front Wheeled Walker Orthotic/Prosthetic Devices or Brace: No Gait Deviations General Gait Pattern Antalgic Decreased Stride Length Decreased Feet Clearance Factors Limiting Gait Function Factors Limiting Gait Function Decreased Activity Tolerance Decreased Strength Limited Range of Motion Pain Poor Balance Comments Gait Comments pt's daughter was able to assist pt with ambulation safely Stair Climbing Assessment Evaluation Level of Assist On Stairs Contact Guard Assistance Minimal Assistance Devices Stair Climbing Assistive Devices Front Wheel Walker Technique/Endurance Stair Climbing Direction Ascend and Descend Stair Climbing Technique Step to Step Number of Steps Climbed 1 Query Text: Stair Climbing Set # Repetitions (reps) 2 Comments Stair Climbing Comments daughter was able to assist pt with up/down 1 step safely M5 PT-IP Objective Assessments Start: 11/11/18 16:39 Freq: NEEDED Status: Active Protocol: Document 11/12/18 09:40 AB (Rec: 11/12/18 13:36 AB [email or web address]) Orientation Orientation/Cognition Level of Alertness Alert Orientation Name Age Place Situation Language Function Ability No Deficits Noted Safety Awareness Understands Safety Issues Memory Description Short Term Impaired Gross Range of Motion Lower Extremity ROM Assessment Left Impaired Impairments L hip tightness Strength Lower Extremity Strength Assessment Left Impaired Knee 3+/5 Coordination Assessment Gross Coordination Gross Coordination WNL Sensation Assessment Sensation Gross Sensation WNL Muscle Tone Muscle Tone WNL Yes M6 PT-IP Treatment Start: 11/11/18 16:39 Freq: NEEDED Status: Active Protocol: Document 11/12/18 15:24 AB (Rec: 11/12/18 16:45 AB [id number]) Physical Therapy Treatment Education Education Provided Precautions Weight Bearing Status Safety M7 PT-IP Assessment and Plan Start: 11/11/18 16:39 Freq: NEEDED Status: Active Protocol: Document 11/12/18 15:24 AB (Rec: 11/12/18 16:45 AB [id number]) PT Summary Assessment and Plan Potential Rehabilitation Potential Good Summary Impairments Pain ROM Strength Balance Coordination Sensation Bed Mobility Transfers Gait Activity Tolerance Progress Towards Goals Progressing Toward Goals Assessment Summary caregiver training conducted and pt's daughter is able to assist pt safely. pt may go home when medically stable Goals Bed Mobility Goal Standby Assistance Transfer Goal Standby Assistance Front Wheeled Walker Gait Goal Standby Assistance Front Wheel Walker Gait Distance 150 Other Goals up/down 1 step using FWW CGA Days to Meet Goals 3 Frequency of Treatment Frequency Of Treatment Twice a Day Treatment Plan Physical Therapy Treatment Plan Bed Mobility Training Transfer Training Gait Training Therapeutic Exercise Balance Retraining Post Op Education Discharge Planning Hot or Cold Pack Neuromuscular Re-ed Coordination Retraining Manual Therapy Other Recommendations and Next Treatment ambulation, caregiver training Focus , stair climbing Recommendations To Nursing Amount of Assist Needed 1 Person Assist Discharge Recommendations PT Discharge Recommendations Home with Assistance Outpatient PT
--- NOTE | 2018-11-12 17:25 | PC.NURSE ---
Pt cleared by P.T. for home. Discharge order reviewed. Pt's daughter has obtained prescription meds from pharmacy. Gait belt on pt. Pt and pt's daughter provided with written and verbal discharge instructions. Pt able to transfer from chair to wheelchair. has all valuables in possession. Pt left hospital in stable condition with RN escort to private vehicle with daughter. Pt left hospital in stable condition.
--- NOTE | 2018-11-13 10:41 | CM.DANOTE ---
Addendum entered by Kelly Adhikari LPN 11/13/18 10:47: A check in on case this morning shows that PT worked with pt throughout the day yesterday, cleared her for home and she left at 1745 with her daughter. No d/c concerns were noted by the care team members. Original Note: Discharge Planning/Care Management DCP: assessment: late enty: Case received yesterday 11/12, EMR reviewed and discussed in Team Rounds. Pt is a 68 year old female who admitted on 11/11 for a planned L GONZALEZ. Payer: [facility] Surgeon: Dr. Elkins PT was ordered and preop plan for a d/c to daughter's home was noted. P: to follow prn for d/c needs after update by PT staff. Advanced directive, confirm from FAMILY Start: 11/11/18 13:18 Freq: Q24H Status: Discharge Protocol: Document 11/11/18 13:26 AMM (Rec: 11/11/18 13:26 AMM [id number]) Advance Directive, confirm on record Time 13:26 Person contacted Dtr Copy received No CM Discharge Assessment Start: 11/13/18 10:40 Freq: Status: Discharge Protocol: Document 11/13/18 10:41 ITV (Rec: 11/13/18 10:41 ITV [id number]) Discharge Planning Assessment Advance Directives? Yes Advance Directives on File No History Provided By Patient Medical Record Prior Living Arrangements House Household Members none Review Status In Process Next Review Type Continued Stay Review Pre-Anesthesia Assessment Start: 11/04/18 13:02 Freq: Status: Complete Protocol: Document 11/04/18 13:02 CAB (Rec: 11/04/18 13:55 CAB [id number]) Pre-Anesthesia Assessment Patient Also Known As (AKA) Tessy Patient Information Reviewed Via Phone Assessment Assessment Completed With Patient Diagnostic Results BMP/CMP CBC Urinalysis Primary Care Provider Tootie Damico Seen Specialist in Last 12 Months Yes Specialist Seen House Worker Orthopedist Primary Language 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 No Height 172.72 cm Weight 101.605 kg Body Mass Index (BMI) 34.0 Hearing Ability Normal Visual Impairment No Limitations Visual Assist Magnifying Glass Dentition Type Teeth, Natural Present Barriers to Learning None Other Aids No Hx Anesthesia Reactions No Hx Family Anesthesia Reaction No Hx Malignant Hyperthermia No Hx Blood Transfusions Yes: s/p vaginal delivery 1968 Hx Blood Transfusion Reaction No Anesthesia Review Requested Yes: Surgeon requests re: Multiple medication allergies International Sales Representative No alcohol intake never Smoking Status Never smoker Substance Use Type does not use Pain Present Pain Reported Musculoskeletal Symptoms Abnormal Gait Back Pain Difficulty Walking Joint Pain Joint Stiffness Limited Range of Motion Radiating Pain into Limb History of Falling (Recent or History of No ) Patient is completely paralyzed or No completely immobile Mental Status Oriented to own ability Is patient on oxygen? No Does patient have HALL/SOB No Hx Sleep Apnea No Currently Taking a Beta Natalie No Can You Climb a Flight of Stairs Without Yes SOB Hx Chest Pain No Hx SOB No Hx Syncope or Dizziness No Anti-Coagulant Therapy No Has a Machinist Instructor No Cardiac Testing No Hx Pacemaker/ICD No Pacemaker Rep Required? No Cardiac Clearance Received Not Applicable Diet Type At Home Regular dysphagia No Bladder Pattern Incontinent, Stress Nocturia Urinary Catheter Present No Hx Urinary Self Catheterization No Diabetes No HgbA1C 5.7 Date 11/03/18 Patient No Lactating No Hx Drug Resistant Organism No Presence of External or Internal Medical No Devices Have you traveled outside the [facility] in the last 30 days? Marital Status Lives With none Prior Living Arrangements House Number of Floors (Floors) One Floor Number of Stairs To Enter/Railing? 7 stairs Support System Child/Children Patient Discharge Plan Description Other Comment Will stay w/daughter at discharge to assist with care Feels Safe in Current Environment Yes Been Physically Hurt or Threatened By a No Person in Current Environment Do you have thoughts of harming yourself None or others? Are you currently considering suicide? No Do you have a plan to hurt yourself or No Plan others? Do You Have Any Spiritual Beliefs That No May Affect Your HC Choices? Do You Have Any Cultural Practices That No May Affect Your HC Choices? Spiritual Referral None Comment Yarsani Who Can We Speak to About Patient's Care Family, friends Identifying Code for Release of Patient Declines to issue Information Health Care Proxy/Next of Kin Maria Esther (daughter) Health Care Proxy Emergency Contact Name Maria Esther (daughter) Emergency Contact Advance Directives? Yes Advance Directives on File No Requested Patient Bring Advanced Yes Directives DOS Power of Operator Yes Power of Operator Name Maria Esther (pierre) Power of Operator PAC Instructions Do not shave/clip surgical site Durable medical equipment Medications to take/avoid Nasal antibiotic No ETOH/petroleum product on skin DOS NPO Post-op transportation Pre-surgical wash Sturdy shoes/comfortable clothes Do not bring valuables and remove jewelry
== END 2018-11-12 17:21 | disposition home or self-care (01) | DRG 470 ==
PROVIDERS: Admitting Provider Orthopaedic Surgery; Visit Provider Orthopaedic Surgery
PROC: 0SRB0JZ Replacement of Left Hip Joint with Synthetic Substitute, Open Approach (ICD-10-PCS; CPT 27130; principal; 2018-11-11 07:45)
DX: M16.12 Unilateral primary osteoarthritis, left hip (principal); I10 Essential (primary) hypertension
CPT/HCPCS: 36415; 72170; 73502; 85014; 85018; 94760; 94762; 97162; 97530; C1776; C9290; J0171; J1100; J2250; J2274; J2405; J2704; J3010; J3370